=== PATIENT | male | born 1965 | race African-American/Black ===

== ENCOUNTER 2020-04-21 09:11 | Inpatient (IN) | payer OTHER ==
[2020-04-21] MEDS ORDERED: Dexamethasone 10 MG/ML VIAL ONE (10:17)
--- NOTE | 2020-04-21 10:40 | RAD ---
PORTABLE CHEST 1 VIEW: Date: 04/21/2020 Time: 1023 hours HISTORY: Cough, diarrhea, chills. FINDINGS/IMPRESSION: The lungs are hypoexpanded. The heart size is normal. No lobar consolidation, pneumothoraces, or lar ge pleural effusions are seen. POS: [facility]
[2020-04-21] MEDS ORDERED: Albuterol 200 PUFF (6.7GM INHALER) ONE (11:00)
[2020-04-21 11:33] LABS: ALT (SGPT) 78 U/L (8-55); AST (SGOT) 67 U/L (5-34); Albumin 4.2 g/dL (3.5-5.0); Alkaline Phosphatase 60 U/L (40-110); Anion Gap 17 mmol/L (10-20); BUN (Urea Nitrogen) 12 mg/dL (8.4-25.7); Bilirubin, Total 0.4 mg/dL (0.2-1.2); Calc. Creatinine Clearance 0 mL/min (70-130); Calcium 8.8 mg/dL (7.8-10.44); Carbon Dioxide 25 mmol/L (22-29); Chloride 94 mmol/L (98-107); Globulin 3.7 g/dL (2.4-3.5); Glucose 99 mg/dL (70-105); Potassium 3.8 mmol/L (3.5-5.1); Protein, Total 7.9 g/dL (6.0-8.3); Sodium 132 mmol/L (136-145)
[2020-04-21 11:51] LABS: Hemoglobin 16.4 g/dL (14.0-18.0); Mean Corpuscular HGB CONC 32.5 g/dL (32.0-36.0); Mean Corpuscular Hemoglobin 21.8 pg (27.0-31.0); Mean Corpuscular Volume 67.1 fL (78.0-98.0); Mean Platelet Volume 10.2 fL (7.4-10.4); Platelet Count 159 thou/uL (130-400); RBC Distribution Width 14.4 % (11.5-14.5); Red Blood Cell (RBC) Count 7.53 mill/uL (4.70-6.10); White Blood Cell (WBC) Count 6.7 thou/uL (4.8-10.8)
[2020-04-21 11:52] LABS: #Lymphocytes 1.4 thou/uL (1.20-3.40); #Monocytes 0.7 thou/uL (0.11-0.59); #Neutrophils 4.6 thou/uL (1.40-6.50); %Eosinophils 0.1 % (0.0-10.0); %Lymphocytes 20.9 % (21.0-51.0); %Monocytes 10.8 % (0.0-10.0); %Neutrophils 68.3 % (42.0-75.0)
[2020-04-21 12:00] LABS: MDiff Complete? YES; Microcytosis MODERATE=15-30 cells (100X) (0-5/hpf); Platelet Morphology Comment Appears Adequate; Polychromasia MODERATE = 3-4 cells (100X) (0-2/hpf)
[2020-04-21] MEDS ORDERED: Iopamidol-370 76% 500 ML 1 ML ONE (12:17)
[2020-04-21] MEDS ORDERED: Acetaminophen 500 MG TAB ONE (13:03)
[2020-04-21 13:09] LABS: SARS-CoV-2 NAA Rapid Test DETECTED (NotDetected)
--- NOTE | 2020-04-21 13:40 | PDOC.HHP ---
Hospitalist [facility] History of Present Illness: Mr. Rivera is a 55-year-old male with past medical history of hypertension who presents emergency room for worsening shortness of breath. Patient reports that a little over a week ago he developed a dry cough, subjective fevers and myalgias. Patient reports his cough and shortness of breath worsened over the past few days. On presentation emergency room he was saturating in the mid 80s on room air. Now requiring 4 L nasal cannula. No known Covid contacts. He denies any history of cardiac or respiratory disease. He is a non-smoker. He denies chest pain, palpitations, abdominal pain. Denies nausea vomiting diarrhea. In emergency room initial vital signs 125/83, 87, 17, 98.9, 92% on 4 L nasal cannula. Initial troponin 0 0.011, D-dimer 0.64. BUN/CR 12/1.36, sodium 132, potassium 3.8. H/H 16.4/50.6, WBC 6.7. Chest x-ray with bilateral patchy infiltrates. CTA pending. Past History: PMHx: Hypertension PSHx: No surgical history FHx: Family history of coronary artery disease and diabetes Social: Lives at home with family, denies drug alcohol or smoking Hospitalist HPI ROS Constitutional: reports: fever, chills, sweats, weakness, malaise. denies: other Eyes: denies: pain, vision change, conjunctivae inflammation, eyelid inflammation, redness, other ENT: denies: ear pain, ear discharge, nose pain, nose discharge, nose congestion, mouth pain, mouth swelling, throat pain, throat swelling, other Respiratory: reports: cough, dry, shortness of breath. denies: hemoptysis, SOB with excertion, pleuritic pain, sputum, wheezing, other Cardiovascular: denies: chest pain, palpitations, orthopnea, paroxysmal noc. dyspnea, edema, light headedness, other Gastrointestinal: denies: nausea, vomiting, abdominal pain, diarrhea, constipation, melena, hematochezia, other Genitourinary: denies: dysuria, frequency, incontinence, hematuria, retention, other Musculoskeletal: denies: neck pain, shoulder pain, arm pain, back pain, hand pain, leg pain, foot pain, other Skin: denies: rash, lesions, félix, bruising, other Neurological: denies: weakness, numbness, incoordination, change in speech, confusion, seizures, other Hospitalist Exam General Appearance: NAD, awake alert General - other findings: Comfortable on 4 L nasal cannula Eye: PERRL, anicteric sclera ENT: normocephalic atraumatic, no oropharyngeal lesions, moist mucosa Neck: supple, symmetric, no JVD, no thyromegaly, no lymphadenopathy, no carotid bruit Heart: RRR, no murmur, no gallops, no rubs, normal peripheral pulses Respiratory: CTAB, no wheezes, no rales, no ronchi, normal chest expansion, no tachypnea, normal percussion Gastrointestinal: soft, non-tender, non-distended, normal bowel sounds, no palpable masses, no hepatomegaly, no splenomegaly, no bruit Extremities: no cyanosis, no clubbing, no edema Skin: normal turgor, no lesions, no rashes Neurological: cranial nerve grossly intact, normal sensation to touch, no weakness, no focal deficits, no new deficit Musculoskeletal: normal tone, normal strength, no muscle wasting Psychiatric: normal affect, normal behavior, A&O x 3 Hospitalist Results Result Diagrams: 04/21/20 10:50 04/21/20 10:50 Lab results: Laboratory Last Values WBC 6.7 thou/uL (4.8-10.8) 04/21/20 10:50 RBC 7.53 mill/uL (4.70-6.10) H 04/21/20 10:50 Hgb 16.4 g/dL (14.0-18.0) 04/21/20 10:50 Hct 50.6 % (42.0-52.0) 04/21/20 10:50 MCV 67.1 fL (78.0-98.0) L 04/21/20 10:50 MCH 21.8 pg (27.0-31.0) L 04/21/20 10:50 MCHC 32.5 g/dL (32.0-36.0) 04/21/20 10:50 RDW 14.4 % (11.5-14.5) 04/21/20 10:50 Plt Count 159 thou/uL (130-400) 04/21/20 10:50 MPV 10.2 fL (7.4-10.4) 04/21/20 10:50 Neutrophils % 68.3 % (42.0-75.0) 04/21/20 10:50 Neutrophils % (Manual) Not Reportable 04/21/20 10:50 Lymphocytes % 20.9 % (21.0-51.0) L 04/21/20 10:50 Monocytes % 10.8 % (0.0-10.0) H 04/21/20 10:50 Eosinophils % 0.1 % (0.0-10.0) 04/21/20 10:50 Basophils % 0.0 % (0.0-1.0) 04/21/20 10:50 Neutrophils # 4.6 thou/uL (1.40-6.50) 04/21/20 10:50 Lymphocytes # 1.4 thou/uL (1.20-3.40) 04/21/20 10:50 Monocytes # 0.7 thou/uL (0.11-0.59) H 04/21/20 10:50 Eosinophils # 0.0 thou/uL (0.0-0.7) 04/21/20 10:50 Basophils # 0.0 thou/uL (0.0-0.2) 04/21/20 10:50 Plt Morphology Comment Appears Adequate 04/21/20 10:50 Polychromasia MODERATE = 3-4 cells (100X) (0-2/hpf) H 04/21/20 10:50 Microcytosis MODERATE=15-30 cells (100X) (0-5/hpf) H 04/21/20 10:50 D-Dimer 0.64 *mcg/mL (0.27-0.43) H 04/21/20 10:50 Sodium 132 mmol/L (136-145) L 04/21/20 10:50 Potassium 3.8 mmol/L (3.5-5.1) 04/21/20 10:50 Chloride 94 mmol/L (98-107) L 04/21/20 10:50 Carbon Dioxide 25 mmol/L (22-29) 04/21/20 10:50 Anion Gap 17 mmol/L (10-20) 04/21/20 10:50 BUN 12 mg/dL (8.4-25.7) 04/21/20 10:50 Creatinine 1.36 mg/dL (0.7-1.3) H 04/21/20 10:50 Estimated GFR (MDRD) 66 04/21/20 10:50 Glucose 99 mg/dL (70-105) 04/21/20 10:50 Calcium 8.8 mg/dL (7.8-10.44) 04/21/20 10:50 Total Bilirubin 0.4 mg/dL (0.2-1.2) 04/21/20 10:50 AST 67 U/L (5-34) H 04/21/20 10:50 ALT 78 U/L (8-55) H 04/21/20 10:50 Alkaline Phosphatase 60 U/L (40-110) 04/21/20 10:50 Troponin I 0.011 ng/mL (< 0.028) 04/21/20 10:50 Serum Total Protein 7.9 g/dL (6.0-8.3) 04/21/20 10:50 Albumin 4.2 g/dL (3.5-5.0) 04/21/20 10:50 Globulin 3.7 g/dL (2.4-3.5) H 04/21/20 10:50 Albumin/Globulin Ratio 1.1 g/dL (1.2-2.2) L 04/21/20 10:50 Influenza A RNA INAAT Not Detected (NotDetected) 04/21/20 12:07 Influenza B RNA INAAT Not Detected (NotDetected) 04/21/20 12:07 SARS-CoV-2 Rap RNA(RT-PCR) DETECTED (NotDetected) A* 04/21/20 12:07 Hospitalist H&P A/P Plan: COVID-19 Pneumonia 55-year-old male past medical history of hypertension presents with worsening shortness of breath found to be Covid positive. Now requiring 4 L nasal cannula to maintain O2 saturation. Chest x-ray with bilateral patchy infiltrates consistent with COVID-19 pneumonia. D-dimer elevated, CTA pending. WBC 6.7. Initial troponin 0 0.011. Patient's symptoms began approximately 8 days ago. Will continue Decadron, obtain baseline pulmonary markers and see if patient is candidate for remdesivir. Plan -Decadron, will see patient is candidate for remdesivir -Supplemental oxygen -Tylenol, Robitussin -Vitamin C, zinc -We will obtain baseline inflammatory markers Acute hypoxic respiratory failure Patient with acute hypoxic respiratory failure secondary to moderate to severe COVID-19 pneumonia. Patient with new oxygen requirement now on 4 L of oxygen nasal cannula to maintain O2 sat. We will continue supplemental oxygen and closely monitor respiratory status. Treatment as above. Plan -Supplemental oxygen -Treatment as above -Closely monitor respiratory status Acute Kidney Injury BUN/Cr 12/.35. Likely pre-renal 2/2 decreased PO intake. Will start gentle IVF and continue to monitor. Plan -IVF -Trend kidney function -Avoid nephrotoxic agents Hypertension Continue home antihypertensives once dosage confirmed. DVT prophylaxis- SC Heparin FULL CODE Case discussed with attending physician, Dr. Mercado.
[2020-04-21] MEDS ORDERED: Ondansetron PF 4 MG/2 ML Vial IVP PRN (13:45)
[2020-04-21] MEDS ORDERED: Ondansetron ODT 4 MG TAB PO PRN (13:45)
[2020-04-21] MEDS ORDERED: Sodium Chloride 0.9% 1,000 ML IV SCH (13:45)
[2020-04-21] MEDS ORDERED: Acetaminophen 650 MG Suppository PR PRN (13:45)
--- NOTE | 2020-04-21 13:46 | CT ---
CT PULMONARY ANGIOGRAM WITH IV CONTRAST AND 3-D POSTPROCESSING: HISTORY: Cough and shortness of breath FINDINGS: There is good contrast opacification of the central pulmonary arterial vasculature without filling de fects to suggest central pulmonary embolism. The peripheral branches are not adequately opacified for satisfactory evaluation and exclusion of peripheral pulmonary embolism. The thoracic aorta is without aneurysm. No pleural or pericardial effusions are seen. No pneumothoraces are seen. There are patchy peripheral opacities in the lung lopez bilaterally. There is a 8.5 x 6 x 8 cm cystic mass in the right paracardiac region There are degenerative changes in the spine. Upper abdominal tomograms are grossly unremarkable. IMPRESSION: 1. No CT evidence of central pulmonary embolism. Peripheral embolism cannot be excluded. 2. Bilateral patchy peripheral infiltrates. Correlate for viral infection such as COVID 19. 3. Large right paracardiac cyst.
[2020-04-21] MEDS ORDERED: Benzonatate 100 MG CAP PO PRN (13:47)
[2020-04-21] MEDS ORDERED: Albuterol 200 PUFF (6.7GM INHALER) INH PRN (15:43)
[2020-04-21 16:58] VITALS: BMI 37.8
[2020-04-21] MEDS ORDERED: REMDESIVIR (EUA) 200 MG in Sodium Chloride 0.9% 250 ML 210 ML IV SCH (17:00)
[2020-04-21] MEDS: Heparin 5,000 UNITS/ML VIAL SC SCH (20:10)
[2020-04-21] MEDS: Guaifenesin DM 100-10/5 ML UDCUP PO PRN (20:11)
[2020-04-21] MEDS: Acetaminophen 325 MG TAB PO PRN (20:12)
[2020-04-21] MEDS: Melatonin 3 MG TAB PO PRN (20:12)
[2020-04-22 07:18] LABS: Anion Gap 12 mmol/L (10-20); BUN (Urea Nitrogen) 14 mg/dL (8.4-25.7); Calc. Creatinine Clearance 178 mL/min (70-130); Calcium 8.9 mg/dL (7.8-10.44); Carbon Dioxide 27 mmol/L (22-29); Chloride 99 mmol/L (98-107); Glucose 114 mg/dL (70-105); Potassium 4.2 mmol/L (3.5-5.1); Sodium 134 mmol/L (136-145)
[2020-04-22 07:32] LABS: Hemoglobin 14.7 g/dL (14.0-18.0); Mean Corpuscular Hemoglobin 21.4 pg (27.0-31.0); Mean Platelet Volume 10.1 fL (7.4-10.4); Platelet Count 169 thou/uL (130-400); RBC Distribution Width 14.3 % (11.5-14.5); Red Blood Cell (RBC) Count 6.87 mill/uL (4.70-6.10); White Blood Cell (WBC) Count 6.8 thou/uL (4.8-10.8)
[2020-04-22 07:45] LABS: Band 18 % (5-11); Elliptocytes SLIGHT = 2-5 cells (100X) (0-1/hpf); Hypochromia SLIGHT = 6-15 cells (100X) (0-5/hpf); Lymphocytes 13 % (21-51); MDiff Complete? YES; Microcytosis MODERATE=15-30 cells (100X) (0-5/hpf); Monocytes 1 % (0-10); Neutrophil 60 % (42-75); Ovalocytes SLIGHT = 2-5 cells (100X) (0-1/hpf); Polychromasia SLIGHT = 2-3 cells (100X) (0-2/hpf); Reactive Lymphocytes 8 % (0-10)
[2020-04-22] MEDS: Dexamethasone 4 MG TAB PO SCH (08:23)
[2020-04-22] MEDS: Ascorbic Acid 500 mg Chewable Tablet PO SCH (08:24)
[2020-04-22] MEDS: Heparin 5,000 UNITS/ML VIAL SC SCH ×3 (08:24→20:22)
[2020-04-22] MEDS: Zinc Sulfate 220 MG CAP PO SCH (08:24)
--- NOTE | 2020-04-22 12:19 | PDOC.HOSPP ---
- Subjective Encounter Date: 04/22/20 Encounter Time: 12:18 Subjective: No overnight events. Patient reports his breathing feels slightly better this am. Denies chest pain, abdominal pain. Continues on 4L NC. Chart and medications reviewed. - Objective Vital Signs & Weight: Vital Signs (12 hours) Temp Pulse Resp BP Pulse Ox 04/22/20 08:00 95 04/22/20 04:33 97.7 F 68 18 117/76 95 04/22/20 00:54 98 F 62 16 117/75 95 Weight Admit Weight 278 lb 14.4 oz Weight 278 lb 14.156 oz I&O: 04/21/20 04/22/20 04/23/20 06:59 06:59 06:59 Intake Total 640 360 Balance 640 360 Result Diagrams: 04/22/20 06:19 04/22/20 06:19 Hospitalist ROS - Review of Systems Constitutional: reports: fever, weakness, malaise. denies: chills, sweats, other Eyes: denies: pain, vision change, conjunctivae inflammation, eyelid inflammation, redness, other ENT: denies: ear pain, ear discharge, nose pain, nose discharge, nose congestion, mouth pain, mouth swelling, throat pain, throat swelling, other Respiratory: reports: cough, shortness of breath, SOB with excertion. denies: dry, hemoptysis, pleuritic pain, sputum, wheezing, other Cardiovascular: denies: chest pain, palpitations, orthopnea, paroxysmal noc. dyspnea, edema, light headedness, other Gastrointestinal: denies: nausea, vomiting, abdominal pain, diarrhea, constipation, melena, hematochezia, other Genitourinary: denies: dysuria, frequency, incontinence, hematuria, retention, other Musculoskeletal: denies: neck pain, shoulder pain, arm pain, back pain, hand pain, leg pain, foot pain, other Skin: denies: rash, lesions, félix, bruising, other Neurological: denies: weakness, numbness, incoordination, change in speech, confusion, seizures, other - Medication Medications: Active Medications Generic Name Dose Route Start Last Admin Trade Name Freq PRN Reason Stop Dose Admin Acetaminophen 650 mg 04/21/20 13:45 04/21/20 20:12 Acetaminophen 325 Mg Tab PO 650 mg Q4H PRN Administration Headache/Fever/Mild Pain (1-3) Ascorbic Acid 1,000 mg 04/22/20 09:00 04/22/20 08:24 Ascorbic Acid 500 Mg Chewable Tablet PO 1,000 mg DAILY SULLY Administration Dexamethasone 6 mg 04/22/20 08:00 04/22/20 08:23 Dexamethasone 4 Mg Tab PO 6 mg QAM-WM SULLY Administration Guaifenesin/Dextromethorphan 15 ml 04/21/20 13:45 04/21/20 20:11 Guaifenesin Dm 100-10/5 Ml Udcup PO 15 ml Q4H PRN Administration Cough Heparin Sodium (Porcine) 5,000 units 04/21/20 21:00 04/22/20 08:24 Heparin 5,000 Units/Ml Vial SC 5,000 units TID SULLY Administration Melatonin 3 mg 04/21/20 13:47 04/21/20 20:12 Melatonin 3 Mg Tab PO 3 mg HS PRN Administration Insomnia Zinc Sulfate 220 mg 04/22/20 09:00 04/22/20 08:24 Zinc Sulfate 220 Mg Cap PO 220 mg DAILY SULLY Administration Hospitalist Exam Vitals: Vital Signs (12 hours) Temp Pulse Resp BP Pulse Ox 04/22/20 08:00 95 04/22/20 04:33 97.7 F 68 18 117/76 95 04/22/20 00:54 98 F 62 16 117/75 95 Weight Admit Weight 278 lb 14.4 oz Weight 278 lb 14.156 oz General Appearance: NAD, awake alert General - other findings: Comfortable on 4L NC Eye: PERRL, anicteric sclera ENT: normocephalic atraumatic, no oropharyngeal lesions, moist mucosa Neck: supple, symmetric, no JVD, no thyromegaly, no lymphadenopathy, no carotid bruit Heart: RRR, no murmur, no gallops, no rubs, normal peripheral pulses Respiratory: normal chest expansion, no tachypnea Respiratory - other findings: Rales thorughout Gastrointestinal: soft, non-tender, non-distended, normal bowel sounds, no palpable masses, no hepatomegaly, no splenomegaly, no bruit Extremities: no cyanosis, no clubbing, no edema Skin: normal turgor, no lesions, no rashes Neurological: cranial nerve grossly intact, normal sensation to touch, no weakness, no focal deficits, no new deficit Musculoskeletal: normal tone, normal strength, no muscle wasting Psychiatric: normal affect, normal behavior, A&O x 3 Hosp A/P - Plan COVID-19 Pneumonia 55-year-old male past medical history of hypertension presents with worsening shortness of breath found to be Covid positive. Now requiring 4 L nasal cannula to maintain O2 saturation. Chest x-ray with bilateral patchy infiltrates consistent with COVID-19 pneumonia. D-dimer elevated, CTA pending. WBC 6.7. Initial troponin 0 0.011. Patient's symptoms began approximately 8 days prior to admission. Will continue Decadron, Remdesivir. Pt declining convalescent plasma unless his symptoms worsen. Plan -Decadron, Remdesivir -Supplemental oxygen -Tylenol, Robitussin -Vitamin C, zinc Acute hypoxic respiratory failure Patient with acute hypoxic respiratory failure secondary to moderate to severe COVID-19 pneumonia. Patient with new oxygen requirement now on 4 L of oxygen nasal cannula to maintain O2 sat. We will continue supplemental oxygen and closely monitor respiratory status. Treatment as above. Plan -Supplemental oxygen -Treatment as above -Closely monitor respiratory status Acute Kidney Injury BUN/Cr 12/.35. Likely pre-renal 2/2 decreased PO intake. Improved after IVF. Plan -Resolved -Trend kidney function -Avoid nephrotoxic agents Hypertension Continue home antihypertensives amlodipine, and bisprolol-HCTZ. DVT prophylaxis- SC Heparin FULL CODE Case discussed with attending physician, Dr. Mercado.
[2020-04-22] MEDS: REMDESIVIR (EUA) 100 MG in Sodium Chloride 0.9% 250 ML 230 ML IV SCH (17:11)
[2020-04-22] MEDS: Amlodipine 5 MG TAB PO SCH (20:21)
[2020-04-22] MEDS: Bisoprolol Fumarate/HCTZ 10 mg/6.25 mg Tablet PO SCH (20:21)
[2020-04-22] MEDS: Melatonin 3 MG TAB PO PRN (20:22)
[2020-04-22] MEDS: Acetaminophen 325 MG TAB PO PRN (20:22)
[2020-04-22] MEDS: Guaifenesin DM 100-10/5 ML UDCUP PO PRN (20:23)
[2020-04-23 06:30] LABS: Anion Gap 12 mmol/L (10-20); BUN (Urea Nitrogen) 12 mg/dL (8.4-25.7); Calc. Creatinine Clearance 166 mL/min (70-130); Calcium 8.5 mg/dL (7.8-10.44); Carbon Dioxide 27 mmol/L (22-29); Chloride 99 mmol/L (98-107); Glucose 105 mg/dL (70-105); Sodium 134 mmol/L (136-145)
[2020-04-23 06:49] LABS: Band 19 % (5-11); Hemoglobin 14.1 g/dL (14.0-18.0); Lymphocytes 10 % (21-51); MDiff Complete? YES; Mean Corpuscular HGB CONC 32.8 g/dL (32.0-36.0); Mean Corpuscular Hemoglobin 21.7 pg (27.0-31.0); Mean Corpuscular Volume 66.1 fL (78.0-98.0); Monocytes 7 % (0-10); Neutrophil 63 % (42-75); Platelet Count 222 thou/uL (130-400); RBC Distribution Width 14.3 % (11.5-14.5); Reactive Lymphocytes 1 % (0-10); Red Blood Cell (RBC) Count 6.48 mill/uL (4.70-6.10); White Blood Cell (WBC) Count 11.2 thou/uL (4.8-10.8)
[2020-04-23] MEDS: Ascorbic Acid 500 mg Chewable Tablet PO SCH (08:02)
[2020-04-23] MEDS: Bisoprolol Fumarate/HCTZ 10 mg/6.25 mg Tablet PO SCH ×2 (08:02→21:27)
[2020-04-23] MEDS: Heparin 5,000 UNITS/ML VIAL SC SCH ×3 (08:02→21:28)
[2020-04-23] MEDS: Dexamethasone 4 MG TAB PO SCH (08:03)
[2020-04-23] MEDS: Amlodipine 5 MG TAB PO SCH ×2 (08:03→21:27)
[2020-04-23] MEDS: Zinc Sulfate 220 MG CAP PO SCH (08:03)
--- NOTE | 2020-04-23 08:48 | PDOC.HOSPP ---
- Subjective Encounter Date: 04/23/20 Encounter Time: 08:47 Subjective: No overnight events. Patient reports his breathing feels the same as yesterday. Still coughing and SOB when ambulating to the bathroom. Denies chest pain, palpitations or abdominal pain. No N/V/D. Continues on 4L NC. Chart and medications reviewed. - Objective Vital Signs & Weight: Vital Signs (12 hours) Temp Pulse Resp BP Pulse Ox 04/23/20 08:03 71 04/23/20 05:34 97.7 F 71 18 120/80 93 L 04/23/20 01:08 98.2 F 70 18 110/69 94 L 04/22/20 21:15 98.2 F 76 18 128/74 95 Weight Admit Weight 278 lb 14.4 oz Weight 278 lb 14.156 oz I&O: 04/22/20 04/23/20 04/24/20 06:59 06:59 06:59 Intake Total 640 1410 Output Total 450 Balance 640 960 Result Diagrams: 04/23/20 05:41 04/23/20 05:41 Hospitalist ROS - Review of Systems Constitutional: reports: fever, weakness, malaise. denies: chills, sweats, other Eyes: denies: pain, vision change, conjunctivae inflammation, eyelid inflammation, redness, other ENT: denies: ear pain, ear discharge, nose pain, nose discharge, nose congestion, mouth pain, mouth swelling, throat pain, throat swelling, other Respiratory: reports: cough, dry, shortness of breath, SOB with excertion. denies: hemoptysis, pleuritic pain, sputum, wheezing, other Cardiovascular: denies: chest pain, palpitations, orthopnea, paroxysmal noc. dyspnea, edema, light headedness, other Gastrointestinal: denies: nausea, vomiting, abdominal pain, diarrhea, constipation, melena, hematochezia, other Genitourinary: denies: dysuria, frequency, incontinence, hematuria, retention, other Musculoskeletal: denies: neck pain, shoulder pain, arm pain, back pain, hand pain, leg pain, foot pain, other Skin: denies: rash, lesions, félix, bruising, other Neurological: denies: weakness, numbness, incoordination, change in speech, confusion, seizures, other - Medication Medications: Active Medications Generic Name Dose Route Start Last Admin Trade Name Freq PRN Reason Stop Dose Admin Acetaminophen 650 mg 04/21/20 13:45 04/22/20 20:22 Acetaminophen 325 Mg Tab PO 650 mg Q4H PRN Administration Headache/Fever/Mild Pain (1-3) Amlodipine Besylate 5 mg 04/22/20 21:00 04/23/20 08:03 Amlodipine 5 Mg Tab PO 5 mg BID SULLY Administration Ascorbic Acid 1,000 mg 04/22/20 09:00 04/23/20 08:02 Ascorbic Acid 500 Mg Chewable Tablet PO 1,000 mg DAILY SULLY Administration Bisoprolol Fumarate/HCTZ 1 tab 04/22/20 21:00 04/23/20 08:02 Bisoprolol Fumarate/Hctz 10 Mg/6.25 Mg Tablet PO 1 tab BID SULLY Administration Dexamethasone 6 mg 04/22/20 08:00 04/23/20 08:03 Dexamethasone 4 Mg Tab PO 6 mg QAM-WM SULLY Administration Guaifenesin/Dextromethorphan 15 ml 04/21/20 13:45 04/22/20 20:23 Guaifenesin Dm 100-10/5 Ml Udcup PO 15 ml Q4H PRN Administration Cough Heparin Sodium (Porcine) 5,000 units 04/21/20 21:00 04/23/20 08:02 Heparin 5,000 Units/Ml Vial SC 5,000 units TID SULLY Administration Remdesivir 100 mg/ Sodium 250 mls @ 250 mls/hr 04/22/20 17:00 04/22/20 17:11 Chloride IV 04/25/20 17:59 250 mls 1700 SULLY Administration Melatonin 3 mg 04/21/20 13:47 04/22/20 20:22 Melatonin 3 Mg Tab PO 3 mg HS PRN Administration Insomnia Zinc Sulfate 220 mg 04/22/20 09:00 04/23/20 08:03 Zinc Sulfate 220 Mg Cap PO 220 mg DAILY SULLY Administration Hospitalist Exam Vitals: Vital Signs (12 hours) Temp Pulse Resp BP Pulse Ox 04/23/20 08:03 71 04/23/20 05:34 97.7 F 71 18 120/80 93 L 04/23/20 01:08 98.2 F 70 18 110/69 94 L 04/22/20 21:15 98.2 F 76 18 128/74 95 Weight Admit Weight 278 lb 14.4 oz Weight 278 lb 14.156 oz General Appearance: NAD, awake alert General - other findings: Comfortable on 4L NC Eye: PERRL, anicteric sclera ENT: normocephalic atraumatic, no oropharyngeal lesions, moist mucosa Neck: supple, symmetric, no JVD, no thyromegaly, no lymphadenopathy, no carotid bruit Heart: RRR, no murmur, no gallops, no rubs, normal peripheral pulses Respiratory: CTAB, no wheezes, no rales, no ronchi, normal chest expansion, no tachypnea, normal percussion Gastrointestinal: soft, non-tender, non-distended, normal bowel sounds, no palpable masses, no hepatomegaly, no splenomegaly, no bruit Extremities: no cyanosis, no clubbing, no edema Skin: normal turgor, no lesions, no rashes Neurological: cranial nerve grossly intact, normal sensation to touch, no weakness, no focal deficits, no new deficit Musculoskeletal: normal tone, normal strength, no muscle wasting Psychiatric: normal affect, normal behavior, A&O x 3 Hosp A/P - Plan COVID-19 Pneumonia 55-year-old male past medical history of hypertension presents with worsening shortness of breath found to be Covid positive. Now requiring 4 L nasal cannula to maintain O2 saturation. Chest x-ray with bilateral patchy infiltrates consistent with COVID-19 pneumonia. D-dimer elevated, CTA pending. WBC 6.7. Initial troponin 0 0.011. Patient's symptoms began approximately 8 days prior to admission. Will continue Decadron, Remdesivir. Pt declining convalescent plasma unless his symptoms worsen. Plan -Decadron, Remdesivir -Supplemental oxygen -Tylenol, Robitussin -Vitamin C, zinc Acute hypoxic respiratory failure Patient with acute hypoxic respiratory failure secondary to moderate to severe COVID-19 pneumonia. Patient with new oxygen requirement now on 4 L of oxygen nasal cannula to maintain O2 sat. We will continue supplemental oxygen and closely monitor respiratory status. Treatment as above. Plan -Supplemental oxygen -Treatment as above -Closely monitor respiratory status Acute Kidney Injury BUN/Cr 12.35. Likely pre-renal 2/2 decreased PO intake. Improved after IVF. Plan -Resolved -Trend kidney function -Avoid nephrotoxic agents Hypertension Continue home antihypertensives amlodipine, and bisprolol-HCTZ. DVT prophylaxis- SC Heparin FULL CODE Case discussed with attending physician, Dr. Mercado.
[2020-04-23] MEDS: REMDESIVIR (EUA) 100 MG in Sodium Chloride 0.9% 250 ML 230 ML IV SCH (17:05)
[2020-04-23] MEDS: Guaifenesin DM 100-10/5 ML UDCUP PO PRN (21:28)
[2020-04-24 06:30] LABS: Band 3 % (5-11); Hemoglobin 14.5 g/dL (14.0-18.0); Lymphocytes 18 % (21-51); MDiff Complete? YES; Mean Corpuscular HGB CONC 32.3 g/dL (32.0-36.0); Mean Corpuscular Hemoglobin 21.5 pg (27.0-31.0); Mean Corpuscular Volume 66.4 fL (78.0-98.0); Mean Platelet Volume 9.4 fL (7.4-10.4); Monocytes 10 % (0-10); Neutrophil 66 % (42-75); Platelet Count 260 thou/uL (130-400); Platelet Morphology Comment Appears Adequate; RBC Distribution Width 14.2 % (11.5-14.5); RBC Morphology Normal; Reactive Lymphocytes 3 % (0-10); Red Blood Cell (RBC) Count 6.76 mill/uL (4.70-6.10); White Blood Cell (WBC) Count 12.1 thou/uL (4.8-10.8)
[2020-04-24 06:39] LABS: Anion Gap 12 mmol/L (10-20); BUN (Urea Nitrogen) 12 mg/dL (8.4-25.7); Calc. Creatinine Clearance 159 mL/min (70-130); Calcium 8.8 mg/dL (7.8-10.44); Carbon Dioxide 28 mmol/L (22-29); Chloride 99 mmol/L (98-107); Glucose 96 mg/dL (70-105); Potassium 3.9 mmol/L (3.5-5.1); Sodium 135 mmol/L (136-145)
[2020-04-24] MEDS: Guaifenesin DM 100-10/5 ML UDCUP PO PRN ×3 (08:53→21:32)
[2020-04-24] MEDS: Bisoprolol Fumarate/HCTZ 10 mg/6.25 mg Tablet PO SCH ×2 (08:53→20:28)
[2020-04-24] MEDS: Heparin 5,000 UNITS/ML VIAL SC SCH ×3 (08:53→20:28)
[2020-04-24] MEDS: Ascorbic Acid 500 mg Chewable Tablet PO SCH (08:54)
[2020-04-24] MEDS: Dexamethasone 4 MG TAB PO SCH (08:54)
[2020-04-24] MEDS: Zinc Sulfate 220 MG CAP PO SCH (08:54)
[2020-04-24] MEDS: Amlodipine 5 MG TAB PO SCH ×2 (08:55→20:28)
--- NOTE | 2020-04-24 09:15 | PDOC.HOSPP ---
- Subjective Encounter Date: 04/24/20 Encounter Time: 09:14 Subjective: No overnight events. Continues on 4L NC. No new concerns or complaints. Chart and medications reviewed. - Objective Vital Signs & Weight: Vital Signs (12 hours) Temp Pulse Resp BP Pulse Ox 04/24/20 07:42 97.2 F L 56 L 16 125/85 97 04/24/20 05:26 98.3 F 67 22 H 106/64 97 04/24/20 00:53 97.9 F 70 20 107/70 92 L 04/23/20 21:27 76 Weight Admit Weight 278 lb 14.4 oz Weight 278 lb 14.156 oz I&O: 04/23/20 04/24/20 04/25/20 06:59 06:59 06:59 Intake Total 1410 1810 Output Total 450 Balance 960 1810 Result Diagrams: 04/24/20 06:07 04/24/20 06:07 Hospitalist ROS - Review of Systems Constitutional: reports: fever, weakness, malaise. denies: chills, sweats, other Eyes: denies: pain, vision change, conjunctivae inflammation, eyelid inflammation, redness, other ENT: denies: ear pain, ear discharge, nose pain, nose discharge, nose anabell estion, mouth pain, mouth swelling, throat pain, throat swelling, other Respiratory: reports: cough, dry, shortness of breath, SOB with excertion. denies: hemoptysis, pleuritic pain, sputum, wheezing, other Cardiovascular: denies: chest pain, palpitations, orthopnea, paroxysmal noc. dyspnea, edema, light headedness, other Gastrointestinal: denies: nausea, vomiting, abdominal pain, diarrhea, constipation, melena, hematochezia, other Genitourinary: denies: dysuria, frequency, incontinence, hematuria, retention, other Musculoskeletal: denies: neck pain, shoulder pain, arm pain, back pain, hand pain, leg pain, foot pain, other Skin: denies: rash, lesions, félix, bruising, other Neurological: denies: weakness, numbness, incoordination, change in speech, confusion, seizures, other - Medication Medications: Active Medications Generic Name Dose Route Start Last Admin Trade Name Freq PRN Reason Stop Dose Admin Acetaminophen 650 mg 04/21/20 13:45 04/22/20 20:22 Acetaminophen 325 Mg Tab PO 650 mg Q4H PRN Administration Headache/Fever/Mild Pain (1-3) Amlodipine Besylate 5 mg 04/22/20 21:00 04/23/20 21:27 Amlodipine 5 Mg Tab PO 5 mg BID SULLY Administration Ascorbic Acid 1,000 mg 04/22/20 09:00 04/23/20 08:02 Ascorbic Acid 500 Mg Chewable Tablet PO 1,000 mg DAILY SULLY Administration Bisoprolol Fumarate/HCTZ 1 tab 04/22/20 21:00 04/24/20 08:53 Bisoprolol Fumarate/Hctz 10 Mg/6.25 Mg Tablet PO 1 tab BID SULLY Administration Dexamethasone 6 mg 04/22/20 08:00 04/23/20 08:03 Dexamethasone 4 Mg Tab PO 6 mg QAM-WM SULLY Administration Guaifenesin/Dextromethorphan 15 ml 04/21/20 13:45 04/24/20 08:53 Guaifenesin Dm 100-10/5 Ml Udcup PO 15 ml Q4H PRN Administration Cough Heparin Sodium (Porcine) 5,000 units 04/21/20 21:00 04/23/20 21:28 Heparin 5,000 Units/Ml Vial SC 5,000 units TID SULLY Administration Remdesivir 100 mg/ Sodium 250 mls @ 250 mls/hr 04/22/20 17:00 04/23/20 17:05 Chloride IV 04/25/20 17:59 250 mls 1700 SULLY Administration Melatonin 3 mg 04/21/20 13:47 04/22/20 20:22 Melatonin 3 Mg Tab PO 3 mg HS PRN Administration Insomnia Zinc Sulfate 220 mg 04/22/20 09:00 04/23/20 08:03 Zinc Sulfate 220 Mg Cap PO 220 mg DAILY SULLY Administration Hospitalist Exam Vitals: Vital Signs (12 hours) Temp Pulse Resp BP Pulse Ox 04/24/20 07:42 97.2 F L 56 L 16 125/85 97 04/24/20 05:26 98.3 F 67 22 H 106/64 97 04/24/20 00:53 97.9 F 70 20 107/70 92 L 04/23/20 21:27 76 Weight Admit Weight 278 lb 14.4 oz Weight 278 lb 14.156 oz General Appearance: NAD, awake alert General - other findings: Comfortable on 4L NC Eye: PERRL, anicteric sclera ENT: normocephalic atraumatic, no oropharyngeal lesions, moist mucosa Neck: supple, symmetric, no JVD, no thyromegaly, no lymphadenopathy, no carotid bruit Heart: RRR, no murmur, no gallops, no rubs, normal peripheral pulses Respiratory: CTAB, no wheezes, no rales, no ronchi, normal chest expansion, no tachypnea, normal percussion Gastrointestinal: soft, non-tender, non-distended, normal bowel sounds, no palpable masses, no hepatomegaly, no splenomegaly, no bruit Extremities: no cyanosis, no clubbing, no edema Skin: normal turgor, no lesions, no rashes Neurological: normal sensation to touch, no weakness, no focal deficits, no new deficit Musculoskeletal: normal tone, normal strength, no muscle wasting Psychiatric: normal affect, normal behavior, A&O x 3 Hosp A/P - Plan COVID-19 Pneumonia 55-year-old male past medical history of hypertension presents with worsening shortness of breath found to be Covid positive. Now requiring 4 L nasal cannula to maintain O2 saturation. Chest x-ray with bilateral patchy infiltrates consistent with COVID-19 pneumonia. D-dimer elevated, CTA pending. WBC 6.7. Initial troponin 0 0.011. Patient's symptoms began approximately 8 days prior to admission. Will continue Decadron, Remdesivir. Pt declining convalescent plasma unless his symptoms worsen. Plan -Decadron, Remdesivir -Supplemental oxygen -Tylenol, Robitussin -Vitamin C, zinc Acute hypoxic respiratory failure Patient with acute hypoxic respiratory failure secondary to moderate to severe COVID-19 pneumonia. Patient with new oxygen requirement now on 4 L of oxygen nasal cannula to maintain O2 sat. We will continue supplemental oxygen and closely monitor respiratory status. Treatment as above. Plan -Supplemental oxygen -Treatment as above -Closely monitor respiratory status Acute Kidney Injury BUN/Cr 12.35. Likely pre-renal 2/2 decreased PO intake. Improved after IVF. Plan -Resolved -Trend kidney function -Avoid nephrotoxic agents Hypertension Continue home antihypertensives amlodipine, and bisprolol-HCTZ. DVT prophylaxis- SC Heparin FULL CODE Case discussed with attending physician, Dr. Mercado.
[2020-04-24] MEDS ORDERED: Docusate 100 MG CAP PO PRN (13:58)
[2020-04-24] MEDS: REMDESIVIR (EUA) 100 MG in Sodium Chloride 0.9% 250 ML 230 ML IV SCH (16:51)
[2020-04-24] MEDS: Melatonin 3 MG TAB PO PRN (21:32)
[2020-04-25 07:38] LABS: Anion Gap 14 mmol/L (10-20); BUN (Urea Nitrogen) 14 mg/dL (8.4-25.7); Calc. Creatinine Clearance 162 mL/min (70-130); Calcium 9.1 mg/dL (7.8-10.44); Carbon Dioxide 25 mmol/L (22-29); Chloride 99 mmol/L (98-107); Glucose 96 mg/dL (70-105); Sodium 134 mmol/L (136-145)
[2020-04-25 07:41] LABS: Hemoglobin 14.9 g/dL (14.0-18.0); Mean Corpuscular HGB CONC 31.8 g/dL (32.0-36.0); Mean Corpuscular Hemoglobin 21.5 pg (27.0-31.0); Mean Corpuscular Volume 67.5 fL (78.0-98.0); Mean Platelet Volume 8.8 fL (7.4-10.4); Platelet Count 265 thou/uL (130-400); RBC Distribution Width 14.4 % (11.5-14.5); Red Blood Cell (RBC) Count 6.93 mill/uL (4.70-6.10); White Blood Cell (WBC) Count 13.1 thou/uL (4.8-10.8)
[2020-04-25] MEDS: Heparin 5,000 UNITS/ML VIAL SC SCH ×3 (08:11→21:00)
[2020-04-25] MEDS: Bisoprolol Fumarate/HCTZ 10 mg/6.25 mg Tablet PO SCH ×2 (08:11→21:00)
[2020-04-25] MEDS: Guaifenesin DM 100-10/5 ML UDCUP PO PRN (08:11)
[2020-04-25] MEDS: Dexamethasone 4 MG TAB PO SCH (08:12)
[2020-04-25] MEDS: Ascorbic Acid 500 mg Chewable Tablet PO SCH (08:12)
[2020-04-25] MEDS: Amlodipine 5 MG TAB PO SCH ×2 (08:12→21:00)
[2020-04-25] MEDS: Zinc Sulfate 220 MG CAP PO SCH (08:12)
[2020-04-25 08:36] LABS: Elliptocytes SLIGHT = 2-5 cells (100X) (0-1/hpf); Lymphocytes 16 % (21-51); MDiff Complete? YES; Microcytosis SLIGHT = 6-15 cells (100X) (0-5/hpf); Monocytes 8 % (0-10); Neutrophil 73 % (42-75); Platelet Morphology Comment Appears Adequate; Polychromasia SLIGHT = 2-3 cells (100X) (0-2/hpf); Reactive Lymphocytes 3 % (0-10)
--- NOTE | 2020-04-25 13:35 | PDOC.HOSPP ---
- Subjective Encounter Date: 04/25/20 Encounter Time: 11:00 Subjective: Patient doing well. He has no discomfort with ambulation he is not hypoxic he is satting 98% with 1 L oxygen he is normotensive. He is getting remdesivir daily. - Objective Vital Signs & Weight: Vital Signs (12 hours) Temp Pulse Resp BP Pulse Ox 04/25/20 11:35 60 18 117/82 98 04/25/20 08:10 61 20 98 04/25/20 07:48 98.5 F 68 16 105/70 100 04/25/20 05:45 68 16 100 Weight Admit Weight 278 lb 14.4 oz Weight 278 lb 14.156 oz I&O: 04/24/20 04/25/20 04/26/20 06:59 06:59 06:59 Intake Total 1810 2300 Balance 1810 2300 Result Diagrams: 04/25/20 06:37 04/25/20 06:37 Hospitalist ROS - Medication Medications: Active Medications Generic Name Dose Route Start Last Admin Trade Name Freq PRN Reason Stop Dose Admin Acetaminophen 650 mg 04/21/20 13:45 04/22/20 20:22 Acetaminophen 325 Mg Tab PO 650 mg Q4H PRN Administration Headache/Fever/Mild Pain (1-3) Amlodipine Besylate 5 mg 04/22/20 21:00 04/25/20 08:12 Amlodipine 5 Mg Tab PO 5 mg BID SULLY Administration Ascorbic Acid 1,000 mg 04/22/20 09:00 04/25/20 08:12 Ascorbic Acid 500 Mg Chewable Tablet PO 1,000 mg DAILY SULLY Administration Bisoprolol Fumarate/HCTZ 1 tab 04/22/20 21:00 04/25/20 08:11 Bisoprolol Fumarate/Hctz 10 Mg/6.25 Mg Tablet PO 1 tab BID SULLY Administration Dexamethasone 6 mg 04/22/20 08:00 04/25/20 08:12 Dexamethasone 4 Mg Tab PO 6 mg QAM-WM SULLY Administration Docusate Sodium 100 mg 04/24/20 13:58 04/24/20 15:07 Docusate 100 Mg Cap PO 100 mg BIDPRN PRN Administration Constipation Guaifenesin/Dextromethorphan 15 ml 04/21/20 13:45 04/24/20 21:32 Guaifenesin Dm 100-10/5 Ml Udcup PO 15 ml Q4H PRN Administration Cough Heparin Sodium (Porcine) 5,000 units 04/21/20 21:00 04/25/20 08:11 Heparin 5,000 Units/Ml Vial SC 5,000 units TID SULLY Administration Remdesivir 100 mg/ Sodium 250 mls @ 250 mls/hr 04/22/20 17:00 04/24/20 16:51 Chloride IV 04/25/20 17:59 250 mls 1700 SULLY Administration Melatonin 3 mg 04/21/20 13:47 04/24/20 21:32 Melatonin 3 Mg Tab PO 3 mg HS PRN Administration Insomnia Sodium Chloride 10 ml 04/21/20 13:45 04/25/20 08:12 Flush - Normal Saline 10 Ml Syringe IVF 10 ml PRN PRN Administration Saline Flush Zinc Sulfate 220 mg 04/22/20 09:00 04/25/20 08:12 Zinc Sulfate 220 Mg Cap PO 220 mg DAILY SULLY Administration Hospitalist Exam Vitals: Vital Signs (12 hours) Temp Pulse Resp BP Pulse Ox 04/25/20 11:35 60 18 117/82 98 04/25/20 08:10 61 20 98 04/25/20 07:48 98.5 F 68 16 105/70 100 04/25/20 05:45 68 16 100 Weight Admit Weight 278 lb 14.4 oz Weight 278 lb 14.156 oz General Appearance: NAD, awake alert Eye: PERRL ENT: normocephalic atraumatic Neck: supple Heart: RRR Respiratory: CTAB, normal chest expansion Gastrointestinal: soft, normal bowel sounds Neurological: no focal deficits Psychiatric: normal behavior, A&O x 3 Hosp A/P - Plan 55-year-old male past medical history of hypertension presents with worsening shortness of breath found to be Covid positive. Now requiring 4 L nasal cannula to maintain O2 saturation. Chest x-ray with bilateral patchy infiltrates consistent with COVID-19 pneumonia. D-dimer elevated, CTA pending. WBC 6.7. Initial troponin 0 0.011. Patient's symptoms began approximately 8 days prior to admission. Will continue Decadron, Remdesivir. Pt declining convalescent plasma unless his symptoms worsen. Plan -Decadron, Remdesivir -Supplemental oxygen -Tylenol, Robitussin -Vitamin C, zinc Acute hypoxic respiratory failure Patient with acute hypoxic respiratory failure secondary to moderate to severe COVID-19 pneumonia. Patient with new oxygen requirement now on 4 L of oxygen nasal cannula to maintain O2 sat. We will continue supplemental oxygen and closely monitor respiratory status. Treatment as above. Plan -Supplemental oxygen -Treatment as above -Closely monitor respiratory status Acute Kidney Injury BUN/Cr 02/03.35. Likely pre-renal 2/2 decreased PO intake. Improved after IVF. Plan -Resolved -Trend kidney function -Avoid nephrotoxic agents Hypertension Continue home antihypertensives amlodipine, and bisprolol-HCTZ. DVT prophylaxis- SC Heparin FULL CODE remdesivir to be stopped tomorrow.
[2020-04-25] MEDS: REMDESIVIR (EUA) 100 MG in Sodium Chloride 0.9% 250 ML 230 ML IV SCH (16:52)
[2020-04-26 06:42] LABS: Hemoglobin 14.7 g/dL (14.0-18.0); Mean Corpuscular HGB CONC 31.5 g/dL (32.0-36.0); Mean Corpuscular Hemoglobin 20.8 pg (27.0-31.0); Mean Corpuscular Volume 66.2 fL (78.0-98.0); Mean Platelet Volume 9.2 fL (7.4-10.4); Platelet Count 309 thou/uL (130-400); RBC Distribution Width 14.5 % (11.5-14.5); Red Blood Cell (RBC) Count 7.06 mill/uL (4.70-6.10); White Blood Cell (WBC) Count 14.6 thou/uL (4.8-10.8)
[2020-04-26 06:45] LABS: Band 5 % (5-11); Lymphocytes 7 % (21-51); MDiff Complete? YES; Monocytes 11 % (0-10); Neutrophil 77 % (42-75); Platelet Morphology Comment Appears Adequate; RBC Morphology Normal
[2020-04-26 06:51] LABS: Anion Gap 14 mmol/L (10-20); BUN (Urea Nitrogen) 15 mg/dL (8.4-25.7); Calc. Creatinine Clearance 174 mL/min (70-130); Calcium 9.2 mg/dL (7.8-10.44); Carbon Dioxide 23 mmol/L (22-29); Chloride 98 mmol/L (98-107); Glucose 90 mg/dL (70-105); Potassium 4.1 mmol/L (3.5-5.1); Sodium 131 mmol/L (136-145)
[2020-04-26] MEDS: Heparin 5,000 UNITS/ML VIAL SC SCH (08:46)
[2020-04-26] MEDS: Zinc Sulfate 220 MG CAP PO SCH (08:46)
[2020-04-26] MEDS: Bisoprolol Fumarate/HCTZ 10 mg/6.25 mg Tablet PO SCH (08:47)
[2020-04-26] MEDS: Amlodipine 5 MG TAB PO SCH (08:47)
[2020-04-26] MEDS: Dexamethasone 4 MG TAB PO SCH (08:47)
[2020-04-26] MEDS: Ascorbic Acid 500 mg Chewable Tablet PO SCH (08:47)
[2020-04-26 09:34] VITALS: TEMP 97.4
--- NOTE | 2020-04-26 11:36 | PDOC.DS.DS ---
Provider Date of Admission: 04/21/20 13:31 Admitting Provider: Jacob Mercado MD Primary Care Physician: August Salazar MD Course Hospital Course: 55-year-old male past medical history of hypertension presents with worsening shortness of breath found to be Covid positive. Now requiring 4 L nasal cannula to maintain O2 saturation. Chest x-ray with bilateral patchy infiltrates consistent with COVID-19 pneumonia. D-dimer elevated, CTA negative for PE. WBC 6.7. Initial troponin 0 0.011. Patient's symptoms began approximately 8 days prior to admission. Will continue Decadron, Remdesivir. Pt declining convalescent plasma unless his symptoms worsen. Completed 5 days of remdesivir Acute hypoxic respiratory failure Patient with acute hypoxic respiratory failure secondary to moderate to severe COVID-19 pneumonia. Completed 5 days of remdesivir Acute Kidney Injury -Improved after IVF. Hypertension Continued home antihypertensives amlodipine, and bisprolol-HCTZ. He appears well asymptomatic does not require oxygen supplement. Sound enough to be discharged home today. Discharge time over 30 minutes Resuscitation Status: 04/21/20 13:45 Resuscitation Status Routine Co-Sign Provider: Resuscitation Status: FULL: Full Resuscitation Lab Results: 04/26/20 06:15 04/26/20 06:15 Abnormal Lab Results - Last 48 hrs 04/25/20 06:37: Sodium 134 L 04/25/20 06:37: WBC 13.1 H, RBC 6.93 H, MCV 67.5 L, MCH 21.5 L, MCHC 31.8 L, Lymphocytes % (Manual) 16 L 04/26/20 06:15: Sodium 131 L 04/26/20 06:15: WBC 14.6 H, RBC 7.06 H, MCV 66.2 L, MCH 20.8 L, MCHC 31.5 L, Neutrophils % (Manual) 77 H, Lymphocytes % (Manual) 7 L, Monocytes % (Manual) 11 H Vitals: Vital Signs (12 hours) Temp Pulse Resp BP Pulse Ox 04/26/20 08:00 98 04/26/20 07:00 97.4 F L 62 20 128/84 98 04/26/20 05:46 98.0 F 62 18 128/80 97 Weight Admit Weight 278 lb 14.4 oz Weight 278 lb 14.156 oz Physical Exam: The patient was seen and examined on the day of discharge. Patient is quite anxious to go home. He appears well. He is not in any respiratory distress no chest discomfort no cough satting 98% in the room air and he finished his remdesivir today. Plan Prescriptions: Dexamethasone [Decadron] 6 mg PO QAM-WM 7 Days #7 tab Ascorbic Acid [Vitamin C] 1,000 mg PO DAILY 14 Days #14 mg Zinc Sulfate 220 mg PO DAILY 14 Days #14 cap Home Medications: Medication Instructions Recorded Confirmed Type Amlodipine [Norvasc] 5 mg PO BID 04/21/20 04/21/20 History Bisoprolol/Hydrochlorothiazide 1 each PO BID 04/21/20 04/21/20 History [Bisoprolol-Hctz 10-6.25 mg Tab] Ascorbic Acid [Vitamin C] 1,000 mg PO DAILY 14 Days #14 mg 04/26/20 Rx Dexamethasone [Decadron] 6 mg PO QAM-WM 7 Days #7 tab 04/26/20 Rx Zinc Sulfate 220 mg PO DAILY 14 Days #14 cap 04/26/20 Rx Allergies: No Known Allergies Allergy (Unverified 04/21/20 15:37) Discharge Instructions:: PCP follow-up after 2 weeks Activity:: Activity as Tolerated Nourishment:: Heart Healthy Diet Referrals: August Salazar MD [Primary Care Provider] - Disposition: HOME Quality CORE MEASURES:: N/A
[2020-04-26 12:20] VITALS: BP 108/74
== END 2020-04-26 14:14 | disposition home or self-care (01) | DRG 177 ==
LOC: ERS 09:11 → T4-A 13:31
PROVIDERS: ADMIT Internal Medicine; ATTEND Internal Medicine
PROC: XW033E5 Introduction of Remdesivir Anti-infective into Peripheral Vein, Percutaneous Approach, New Technology Group 5 (ICD-10-PCS; principal; 2020-04-21)
DX: U07.1 COVID-19 (principal); J12.82 Pneumonia due to coronavirus disease 2019; J96.01 Acute respiratory failure with hypoxia; N17.9 Acute kidney failure, unspecified; I10 Essential (primary) hypertension; Z83.3 Family history of diabetes mellitus; Z82.49 Family history of ischemic heart disease and other diseases of the circulatory system
CPT/HCPCS: 0240U; 36415; 71045; 71275; 80048; 80053; 82728; 84484; 85007; 85025; 85027; 85379; 86140; 93005; 96374; J1100; J1644; J7050; J8540; Q9967

== ENCOUNTER 2025-02-06 14:29 | Outpatient (CLI) | payer BC | END 2025-02-06 14:30 | disposition home or self-care (01) | LOC: SCSRAD 14:29 | PROVIDERS: ATTEND Family Medicine | DX: M25.512 Pain in left shoulder (principal); G89.29 Other chronic pain ==